=== PATIENT | female | born 1940 | race Caucasian/White ===

== ENCOUNTER → 2024-01-07 10:16 | Outpatient (REF) | payer MEDICARE, OTHER, SELFPAY ==
[2024-01-07 10:41] LABS: % Basophils 0.8 % (0-2); % Eosinophils 3.3 % (0-6); % Immature Granulocytes 0.6 % (0-0.5); % Lymphocytes 20.1 % (20.5-51.1); % Monocytes 8.4 % (1.7-9.3); % Neutrophils 66.8 % (42.2-75.2); Absolute Basophils 0.1 10^3/uL (0-0.2); Absolute Eosinophils 0.2 10^3/uL (0-0.7); Absolute Lymphocytes 1.3 10^3/uL (1.2-3.4); Absolute Monocytes 0.5 10^3/uL (0.1-0.6); Absolute Neutrophils 4.2 10^3/uL (1.4-6.5); Hematocrit 37.4 % (37.0-47.0); Hemoglobin 12.5 g/dL (12.0-16.0); Mean Corp Hgb Conc. 33.4 g/dL (33.0-37.0); Mean Corpuscular Hgb 30.7 pg (27.0-31.0); Mean Corpuscular Volume 91.9 fL (81.0-99.0); Mean Platelet Volume 10.6 fL (7.4-10.4); Nucleated Red Blood Cells % 0 %; Platelet Count 239 10^3/uL (130-400); Red Blood Cell Count 4.07 10^6/uL (4.20-5.40); Red Cell Dist. Width 13.1 % (11.5-14.5); White Blood Cell Count 6.3 10^3/uL (4.8-10.8)
[2024-01-07 10:57] LABS: ALT (SGPT) 16 U/L (0-35); AST (SGOT) 22 U/L (14-36); Albumin 3.8 g/dl (3.5-5.0); Alkaline Phosphatase 60 U/L (38-126); Blood Urea Nitrogen 22 mg/dl (7-17); Calcium 9.8 mg/dl (8.4-10.2); Carbon Dioxide 26 mmol/L (22-30); Chloride 107 mmol/L (98-107); Glucose 123 mg/dl (70-99); Potassium 4.2 mmol/L (3.5-5.1); Sodium 141 mmol/L (135-145); Total Bilirubin 0.4 mg/dl (0.2-1.3); Total Protein 6.4 g/dl (6.3-8.2); eGFR > 60.00
[2024-01-07 12:23] LABS: Glycohemoglobin (HgbA1c) 5.8 % (4.0-5.6)
[2024-01-10 19:37] LABS: Albumin 3.89 g/dL (3.75-5.01); Alpha 1 Globulin 0.26 g/dL (0.19-0.46); Alpha 2 Globulin 0.64 g/dL (0.48-1.05); Free Kappa Light Chains,Quant 28.79 mg/L (3.30-19.40); Free Lambda Light Chains,Quant 22.02 mg/L (5.71-26.30); IgA 298 mg/dL (68-408); IgG 917 mg/dL (768-1632); IgM 116 mg/dL (35-263); Immunofixation Electrophoresis IFE Done; Kappa/Lambda Fr Light Ratio 1.31 (0.26-1.65); Total Protein-Electrophoresis 6.6 g/dL (6.3-8.2)
== END ==
LOC: OLABPV 10:16
PROVIDERS: ATTENDING PHYSICIAN Family Medicine
DX: I10 Essential (primary) hypertension (principal); K76.0 Fatty (change of) liver, not elsewhere classified; M81.0 Age-related osteoporosis without current pathological fracture; R73.01 Impaired fasting glucose; R79.9 Abnormal finding of blood chemistry, unspecified
CPT/HCPCS: 36415; 80053; 82784; 83036; 83521; 84155; 84165; 85025; 86334

== ENCOUNTER → 2024-02-01 13:13 | Outpatient (REF) | payer MEDICARE, OTHER, SELFPAY | LOC: WDC 13:13 | PROVIDERS: ATTENDING PHYSICIAN Family Medicine | DX: Z12.31 Encounter for screening mammogram for malignant neoplasm of breast (principal) | CPT/HCPCS: 77063; 77067 ==

== ENCOUNTER → 2024-06-14 16:22 | Outpatient (REF) | payer MEDICARE, OTHER, SELFPAY ==
[2024-06-14 17:51] LABS: Blood Urea Nitrogen 18 mg/dl (7-17); Calcium 9.6 mg/dl (8.4-10.2); Carbon Dioxide 27 mmol/L (22-30); Chloride 107 mmol/L (98-107); Glucose 90 mg/dl (70-99); Potassium 4.6 mmol/L (3.5-5.1); Sodium 143 mmol/L (135-145); eGFR > 60.00
[2024-06-15 08:54] LABS: Glycohemoglobin (HgbA1c) 5.6 % (4.0-5.6)
== END ==
LOC: OLABPV 16:22
PROVIDERS: ATTENDING PHYSICIAN Family Medicine
DX: K76.0 Fatty (change of) liver, not elsewhere classified (principal); R73.01 Impaired fasting glucose
CPT/HCPCS: 36415; 80048; 83036

== ENCOUNTER → 2024-10-31 09:59 | Outpatient (REF) | payer MEDICARE, OTHER, SELFPAY ==
[2024-10-31 10:21] LABS: % Basophils 0.5 % (0-2); % Eosinophils 2.6 % (0-6); % Immature Granulocytes 0.7 % (0-0.5); % Lymphocytes 22.9 % (20.5-51.1); % Monocytes 8.7 % (1.7-9.3); % Neutrophils 64.6 % (42.2-75.2); Absolute Eosinophils 0.2 10^3/uL (0-0.7); Absolute Lymphocytes 1.4 10^3/uL (1.2-3.4); Absolute Monocytes 0.5 10^3/uL (0.1-0.6); Hematocrit 39.3 % (37.0-47.0); Hemoglobin 12.6 g/dL (12.0-16.0); Mean Corp Hgb Conc. 32.1 g/dL (33.0-37.0); Mean Corpuscular Hgb 30.7 pg (27.0-31.0); Mean Corpuscular Volume 95.9 fL (81.0-99.0); Mean Platelet Volume 10.1 fL (7.4-10.4); Nucleated Red Blood Cells % 0 %; Platelet Count 219 10^3/uL (130-400); Red Cell Dist. Width 13.4 % (11.5-14.5); White Blood Cell Count 6.1 10^3/uL (4.8-10.8)
[2024-10-31 10:37] LABS: ALT (SGPT) 24 U/L (0-35); AST (SGOT) 30 U/L (14-36); Albumin 3.8 g/dl (3.5-5.0); Alkaline Phosphatase 71 U/L (38-126); Blood Urea Nitrogen 21 mg/dl (7-17); Calcium 8.9 mg/dl (8.4-10.2); Carbon Dioxide 25 mmol/L (22-30); Chloride 105 mmol/L (98-107); Glucose 95 mg/dl (70-99); Potassium 4.3 mmol/L (3.5-5.1); Sodium 139 mmol/L (135-145); Total Bilirubin 0.6 mg/dl (0.2-1.3); Total Protein 6.5 g/dl (6.3-8.2); eGFR > 60.00
== END ==
LOC: OLABPV 09:59
PROVIDERS: ATTENDING PHYSICIAN Internal Medicine Rheumatology
DX: M15.0 Primary generalized (osteo)arthritis (principal); M81.0 Age-related osteoporosis without current pathological fracture; Z51.81 Encounter for therapeutic drug level monitoring
CPT/HCPCS: 36415; 80053; 85025

== ENCOUNTER → 2024-11-16 11:12 | Outpatient (REF) | payer MEDICARE, OTHER, SELFPAY | LOC: HWRAD 11:12 | PROVIDERS: ATTENDING PHYSICIAN Internal Medicine Rheumatology; FAMILY PHYSICIAN Family Medicine | DX: M81.0 Age-related osteoporosis without current pathological fracture (principal); Z13.820 Encounter for screening for osteoporosis | CPT/HCPCS: 77080 ==

== ENCOUNTER → 2024-12-20 10:18 | Outpatient (REF) | payer MEDICARE, OTHER, SELFPAY ==
[2024-12-20 11:20] LABS: ALT (SGPT) 23 U/L (0-35); AST (SGOT) 26 U/L (14-36); Albumin 4.1 g/dl (3.5-5.0); Alkaline Phosphatase 63 U/L (38-126); Blood Urea Nitrogen 24 mg/dl (7-17); Calcium 9.5 mg/dl (8.4-10.2); Carbon Dioxide 25 mmol/L (22-30); Chloride 104 mmol/L (98-107); Glucose 110 mg/dl (70-99); Potassium 4.1 mmol/L (3.5-5.1); Sodium 140 mmol/L (135-145); Total Bilirubin 0.7 mg/dl (0.2-1.3); Total Protein 6.7 g/dl (6.3-8.2); eGFR > 60.00
[2024-12-20 11:36] LABS: Glycohemoglobin (HgbA1c) 5.7 % (4.0-5.6)
== END ==
LOC: OLABPV 10:18
PROVIDERS: ATTENDING PHYSICIAN Family Medicine
DX: K76.0 Fatty (change of) liver, not elsewhere classified (principal); R73.01 Impaired fasting glucose
CPT/HCPCS: 36415; 80053; 83036

== ENCOUNTER → 2025-01-05 13:33 | Outpatient (REF) | payer MEDICARE, OTHER, SELFPAY | LOC: RAD 13:33 | PROVIDERS: ATTENDING PHYSICIAN Obstetrics & Gynecology Female Pelvic Medicine and Reconstructive Surgery; FAMILY PHYSICIAN Family Medicine | DX: N95.0 Postmenopausal bleeding (principal) | CPT/HCPCS: 76830; 76856 ==

== ENCOUNTER → 2025-06-22 10:53 | Outpatient (REF) | payer MEDICARE, OTHER, SELFPAY ==
[2025-06-22 11:30] LABS: Blood Urea Nitrogen 19 mg/dl (7-17); Calcium 9.5 mg/dl (8.4-10.2); Carbon Dioxide 27 mmol/L (22-30); Chloride 108 mmol/L (98-107); Glucose 105 mg/dl (70-99); Potassium 4.4 mmol/L (3.5-5.1); Sodium 139 mmol/L (135-145); eGFR > 60.00
[2025-06-22 11:39] LABS: Urine Character Clear (Clear)
[2025-06-22 12:07] LABS: Glycohemoglobin (HgbA1c) 5.7 % (4.0-5.6)
== END ==
LOC: OLABPV 10:53
PROVIDERS: ATTENDING PHYSICIAN Family Medicine
DX: R73.01 Impaired fasting glucose (principal); I10 Essential (primary) hypertension; R60.0 Localized edema; R93.429 Abnormal radiologic findings on diagnostic imaging of unspecified kidney
CPT/HCPCS: 36415; 80048; 81003; 83036

== ENCOUNTER 2025-07-11 02:03 | Observation (INO) | payer MEDICARE, OTHER, SELFPAY ==
[2025-07-10 16:30] VITALS: BP 145/72
[2025-07-10 16:54] LABS: Hematocrit 37.6 % (37.0-47.0); Hemoglobin 12.6 g/dL (12.0-16.0); Mean Corp Hgb Conc. 33.5 g/dL (33.0-37.0); Mean Corpuscular Volume 91.0 fL (81.0-99.0); Nucleated Red Blood Cells % 0 %; Platelet Count 211 10^3/uL (130-400); Red Cell Dist. Width 13.2 % (11.5-14.5)
[2025-07-10 17:00] LABS: ALT (SGPT) 19 U/L (0-35); AST (SGOT) 25 U/L (14-36); Albumin 4.1 g/dl (3.5-5.0); Alkaline Phosphatase 61 U/L (38-126); Blood Urea Nitrogen 19 mg/dl (7-17); Calcium 9.6 mg/dl (8.4-10.2); Carbon Dioxide 28 mmol/L (22-30); Chloride 106 mmol/L (98-107); Glucose 101 mg/dl (70-99); Lipase 125 U/L (23-300); Potassium 4.3 mmol/L (3.5-5.1); Sodium 138 mmol/L (135-145); Total Protein 7.0 g/dl (6.3-8.2); eGFR > 60.00
--- NOTE | 2025-07-10 21:17 | ED.GENMED ---
History of Present Illness
<Marybel Lucia NP - Last Filed: 07/11/25 19:46>
General
Chief Complaint: Abdominal Pain
Source: patient
Exam Limitations: none
Time Seen by Provider: 07/10/25 21:01
Nursing documentation reviewed up to this point in time: agreed with
History of Present Illness
History of Present Illness:
Patient to ED with report of severe lower abd. pain. Reports she has had mild discomfort over the past few weeks by this AM pain became severe and constant. Pain does not radiate. Denies fever/chills, n/v/d. SHe was evaluated at and advised to
come to ED for eval.
Past History
<Marybel Lucia NP - Last Filed: 07/11/25 19:46>
Past History
ED Past Medical History: HTN and Other (urinary incontinence, osteoporosis, sleep apnea)
Review of Systems
<Marybel Lucia NP - Last Filed: 07/11/25 19:46>
Review of Systems
Allergies reviewed?: Yes
All Other Systems: ROS reviewed and negative except as documented in HPI and ROS
Constitutional: Reports no symptoms
EENT: Reports no symptoms
Respiratory: Reports no symptoms
Cardiac: Reports no symptoms
ABD/GI: Reports abdominal pain (lower abdominal pain)
: Reports no symptoms
Musculoskeletal: Reports no symptoms
Skin: Reports no symptoms
Neurological: Reports no symptoms
Psychiatric: Reports no symptoms
Phy Exam
<Marybel Lucia NP - Last Filed: 07/11/25 19:46>
General Physical Exam
General Presentation: mild distress
General age: appears stated age
General Skin: warm and dry
General Habitus: normal
General Mental: alert
Cardiovascular Exam
Cardiovascular Exam: regular rate/rhythm and no edema
Gastrointestinal Exam
Gastrointestinal Exam: normal bowel sounds, soft, non distended and other (Large ventral hernia)
Palpation: generalized: Moderate tenderness
Musculoskeletal Exam
Musculoskeletal Exam: full ROM and neuro vasc intact
Skin Exam
Skin Exam: normal color, warm/dry and no rash
Psychiatric Exam
Psychiatric Exam: normal mood/affect
Course
<Marybel Lucia NP - Last Filed: 07/11/25 19:46>
Orders/Labs/Results
Orders:
Orders
07/10/25 16:41
Complete Blood Count/With Diff Urgent
Comprehensive Metabolic Panel Urgent
Lipase Urgent
07/10/25 21:16
Urinalysis Reflex To Culture Urgent
Date Specimen was Collected: 07/11/25
Time Specimen was Collected: 09:21
07/10/25 21:17
CT Abd/pelvis W Iv Cont Urgent
Comment:
Reason For Exam: lower abd. pain
07/11/25 00:42
SURGICAL CONSULT Urgent
Consulting Provider: Justen Barbosa.
Was physician already notified: Yes
07/11/25 01:37
Admit/Transfer Patient As Directed
Co-Sign Provider:
Level of Care: Observation services
Assign to:: Medical/Surgical
Physician / Group: Justen Barbosa
Diagnosis: incarcerated Unbilical Hernia
PRN Pain Medication Management As Directed
May give lesser potent ordered pain med per pt: Yes
preference::
Protocol:: Medication orders for pain may be administered in a
manner that supports deferring to patient preference
when the pt is:
- Requesting an ordered lesser potent pain medication.
Least to most potent pain medications are defined
as: acetaminophen < NSAID < tramadol < opioids
(morphine, oxycodone, hydromorphone).
- Requesting a lesser dose of the same medication IF
ORDERED.
- Requesting a less intrusive route of administration
if both routes are prescribed by the provider (PO <
IV).
07/11/25 02:51
Pneumatic Compression Sleeves As Directed
Type: Knee high
DX Deep Vein Thrombosis Video Routine
07/11/25 Breakfast
NPO
Allow oral meds: Yes
Allow clear liquids: No
07/11/25 07:41
Basic Metabolic Panel IN AM
Complete Blood Count/No Diff IN AM
07/11/25 08:00
Spironolactone [Aldactone] 25 mg PO DAILY
vibegron [Gemtesa] 75 mg PO DAILY
Abnormal Lab Results
07/10/25
16:41
RBC 4.13 L 10^6/uL
(4.20-5.40)
Abs Immat Gran (auto) 0.1 H 10^3/uL
(0-0.05)
Absolute Neuts (auto) 6.6 H 10^3/uL
(1.4-6.5)
Immature Gran % 0.6 H %
(0-0.5)
Lymphocytes % 16.1 L %
(20.5-51.1)
BUN 19 H mg/dl
(7-17)
Glucose 101 H mg/dl
(70-99)
07/10/25 16:41
07/10/25 16:41
Vital Signs
Initial and Last Documented VS:
Initial Vital Signs
Temp Pulse Resp BP Pulse Ox
98.4 F 79 20 145/72 95
07/10/25 16:30 07/10/25 16:30 07/10/25 16:30 07/10/25 16:30 07/10/25 16:30
Last Documented Vital Signs
Temp Pulse Resp BP Pulse Ox
98.5 F 97 16 106/41 93
07/11/25 18:37 07/11/25 18:37 07/11/25 18:37 07/11/25 18:37 07/11/25 18:37
<Km Finch, - Last Filed: 07/11/25 00:09>
Orders/Labs/Results
Orders:
Orders
07/10/25 16:41
Complete Blood Count/With Diff Urgent
Comprehensive Metabolic Panel Urgent
Lipase Urgent
07/10/25 21:16
Urinalysis Reflex To Culture Urgent
Date Specimen was Collected: 07/11/25
Time Specimen was Collected: 09:21
07/10/25 21:17
CT Abd/pelvis W Iv Cont Urgent
Comment:
Reason For Exam: lower abd. pain
07/11/25 00:42
SURGICAL CONSULT Urgent
Consulting Provider: Justen Barbosa.
Was physician already notified: Yes
07/11/25 01:37
Admit/Transfer Patient As Directed
Co-Sign Provider:
Level of Care: Observation services
Assign to:: Medical/Surgical
Physician / Group: Justen Barbosa
Diagnosis: incarcerated Unbilical Hernia
PRN Pain Medication Management As Directed
May give lesser potent ordered pain med per pt: Yes
preference::
Protocol:: Medication orders for pain may be administered in a
manner that supports deferring to patient preference
when the pt is:
- Requesting an ordered lesser potent pain medication.
Least to most potent pain medications are defined
as: acetaminophen < NSAID < tramadol < opioids
(morphine, oxycodone, hydromorphone).
- Requesting a lesser dose of the same medication IF
ORDERED.
- Requesting a less intrusive route of administration
if both routes are prescribed by the provider (PO <
IV).
07/11/25 02:51
Pneumatic Compression Sleeves As Directed
Type: Knee high
DX Deep Vein Thrombosis Video Routine
07/11/25 Breakfast
NPO
Allow oral meds: Yes
Allow clear liquids: No
07/11/25 07:41
Basic Metabolic Panel IN AM
Complete Blood Count/No Diff IN AM
07/11/25 08:00
Spironolactone [Aldactone] 25 mg PO DAILY
vibegron [Gemtesa] 75 mg PO DAILY
Abnormal Lab Results
07/10/25
16:41
RBC 4.13 L 10^6/uL
(4.20-5.40)
Abs Immat Gran (auto) 0.1 H 10^3/uL
(0-0.05)
Absolute Neuts (auto) 6.6 H 10^3/uL
(1.4-6.5)
Immature Gran % 0.6 H %
(0-0.5)
Lymphocytes % 16.1 L %
(20.5-51.1)
BUN 19 H mg/dl
(7-17)
Glucose 101 H mg/dl
(70-99)
07/10/25 16:41
07/10/25 16:41
Vital Signs
Initial and Last Documented VS:
Initial Vital Signs
Temp Pulse Resp BP Pulse Ox
98.4 F 79 20 145/72 95
07/10/25 16:30 07/10/25 16:30 07/10/25 16:30 07/10/25 16:30 07/10/25 16:30
Last Documented Vital Signs
Temp Pulse Resp BP Pulse Ox
98.5 F 97 16 106/41 93
07/11/25 18:37 07/11/25 18:37 07/11/25 18:37 07/11/25 18:37 07/11/25 18:37
<Marybel Lucia PHOTONICS ENGINEER - Last Filed: 07/11/25 19:46>
*Radiology
Radiology exam reviewed: radiology read reviewed
*Pulse Oximetry
SaO2: 95
Oxygen Mode of Delivery: Room air
Patient hypoxic: no
*Critical Care Note
Total Time (30-74mins, 75-104mins- exclusive of procedures): Not Applicable
<Marybel Lucia PHOTONICS ENGINEER - Last Filed: 07/11/25 19:46>
Update Note
Update Note:
Patient to ED with report of severe lower abdominal pain since this AM. Abdomen is large, soft. No guarding or rebound. Large umbilical hernia noted. Labs reviewed, no concerning findings. VSS, she remains afebrile. CT report:large umbilical
hernia, smaller ventral hernia. Moderate wall thickening of the small segment of colon involved at the mouth of ther hernia, suggesting incarceration/strangulation. Attempted reduction by Dr. Finch. Unable to completely reduce. Dr. Barbosa
consulted via tiger text. Patient will be admitted to hospitalist mally, surgery to consult in AM.
ED Attending Note
<Marybel Lucia PHOTONICS ENGINEER - Last Filed: 07/11/25 19:46>
-
Portions of this chart may have been created with voice recognition software.� Occasional wrong word or��sound alike� substitutions may have occurred due to the inherent limitations of voice recognition software.
<Km Finch, DO - Last Filed: 07/11/25 00:09>
ED Attending Note
Patient seen and examined by attending physician: Yes
ED Attending Note:
Pleasant 84-year-old female who presents with abdominal pain. By CAT scan she has an incarcerated possibly strangulated set of 2 ventral hernias. I did try to reduce them. It did cause her some pain. She reported that the pain subsided when we
were not reducing. Patient reports also right lower quadrant pain when we attempt to reduce the ventral hernias. Patient to be admitted to the surgical service. I have seen this patient in conjunction with the nurse practitioner. I reviewed and
agree with her history and treatment plan. On my independent physical, minimal to moderate acute distress. Abdomen is distended. There is a umbilical hernia that is prominent.
Discharge Plan
Departure
Patient Disposition: Admit
Date of Disposition: 07/11/25
Time of Disposition: 00:40
Presentation/result/management discussed w/ accepting MD/DO: Hospitalist
Patient with high blood pressure during this ER visit?: No
Condition: Fair
Covid-19: Not Applicable
Discharge Problem:
Incarcerated umbilical hernia
Interventions
Interventions:
*Risk Screen - Suicide Last Done: 07/10/25 16:34
*General Assessment Last Done: 07/10/25 16:34
*Neglect/Abuse Screening Last Done: 07/10/25 16:34
*Nursing Disposition Last Done: 07/11/25 02:35
PR-Qddban-Smccpkandt Assessment Last Done: 07/10/25 22:53
Discharge Date and Time
Discharge Date/Time: 07/11/25 02:51
[2025-07-10 22:53] VITALS: BP 135/53
[2025-07-11] VITALS (9 sets, daily range): BP systolic 103–153; BP diastolic 39–89; BMI 38.5
--- NOTE | 2025-07-11 01:51 | HPS.HSE ---
Family Physician
-
Family Physician: Cinthya Morejon
Chief Complaint
-
'Abdomen pain'
History of Present Illness
84 y/o patient presents to ER with the c/o Lower abdomen pain. Reports 'constant discomfort' at the Right lower abdomen started yesterday (07/10) morning after her breakfast, went to Urgent care at at 3:30 PM and was told to go to ER. States ER
provider attempted to reduce the hernia but unable to do so. reports poor appetite, Denies nausea, vomiting, chills or fever. Last Normal BM 07/10, voiding without difficulties, no blood in stool or urine noted. + flatus but less than yesterday. she
states Hernia was noted years ago and been followed by Dr. Cox.
Medical History
Past Medical History
Past Medical History: Reports HTN
Additional Past Medical History:
urinary Incontinence, Over active bladder, Osteoporosis, Sleep apnea uses Cpap
Past Surgical History: Reports Gynocological (Oophorectomy), Orthopedic (B/L knee replacement) and Other
Additional Past Surgical History:
Cataract surgery, D&C
Social History
Tobacco: Non-smoker
Alcohol: None
Living: With Family
Family History
Family History: Not pertinent
Allergies / Home Medications
Allergies reflects when Allergies were last updated in [employer].
Home Medications with original date entered in [employer]
Allergy/Medication List:
Allergies
Allergy/AdvReac Type Severity Reaction Status Date / Time
No Known Drug Allergies Allergy - Verified 07/10/25 16:38
Environmental Allergy Nasal Uncoded 01/19/18 07:23
Congestion
Home Medications
estradiol 0.01% (0.1 mg/gram) vaginal cream 1 applic VAG .QPM 2X/WEEK 08/30/17
Refresh Eye Drops (Pf): 0 drops BOTH EYES PRN PRN dry eyes 01/07/18
calcium carbonate 500 mg PO DAILY 01/07/18
cholecalciferol (vitamin D3) 50 mcg (2,000 unit) tablet 1,500 unit PO DAILY 01/07/18
zolpidem 5 mg tablet 2.5 - 5 mg PO HSPRN PRN insomnia 01/07/18
spironolactone 25 mg tablet 25 mg PO DAILY 07/11/25
vibegron 75 mg tablet (Gemtesa) 75 mg PO DAILY 07/11/25
Review of Systems
-
History Source: Patient
A 12 point ROS was completed and negative except as noted: Yes
Constitutional: Reports No Symptoms
EENT: Reports No Symptoms
Respiratory: Reports No Symptoms
Cardiac: Reports No Symptoms
Abdomen/GI: Reports Abdominal Pain ('feeling better now', 'bloated' )
: Reports No Symptoms
Musculoskeletal: Reports No Symptoms
Skin: Reports No Symptoms
Neurological: Reports No Symptoms
Endocrine: Reports No Symptoms
Hematologic/Lymphatic: Reports No Symptoms
Psych: Reports No Symptoms
Physical Exam
Vital Signs
Vital Signs
Temp Pulse Resp BP Pulse Ox
97.6 F 69 20 153/68 96
07/11/25 01:35 07/11/25 01:35 07/11/25 01:35 07/11/25 01:35 07/11/25 01:35
Physical Exam
General: Well Developed, Well Nourished and No Apparent Distress
HEENT: NormoCephalic, Moist mucous membranes and Atraumatic
Respiratory: Clear and Non Labored Respirations
Cardiac: S1/S2 and Regular Rhythm
Breast: Deferred by me
GI: Soft, Non Tender and Normal Bowel Sounds
Rectal: Deferred by Provider
Genito-urinary: Deferred by me
Musculoskeletal: No Clubbing, No Cyanosis and Edema, Left Lower Extremity
Skin: Warm and Dry
Neuro: Awake, AO x 3 and Nonfocal/grossly intact
Hematologic/Lymphatic: No Lymphadenopathy
Psych: Calm and Intact Judgment/Insight
Laboratory Results
-
07/10/25 16:41
07/10/25 16:41
Laboratory Results
Total Bilirubin 0.4 mg/dl (0.2-1.3) 07/10/25 16:41
AST 25 U/L (14-36) 07/10/25 16:41
ALT 19 U/L (0-35) 07/10/25 16:41
Alkaline Phosphatase 61 U/L (38-126) 07/10/25 16:41
Lipase 125 U/L (23-300) 07/10/25 16:41
Data Reviewed
-
CT Scan: Report Reviewed by me
Lab Data: Labs Reviewed by me
Impression/Plan
-
84 y/o patient with c/o Abdomen pain
# Abdomen pain Likely due to Incarcerated Ventral Hernia
-CT abd/pelvis:
Findings suggesting 2 ventral hernias each with signs of incarceration/strangulation. No evidence of intestinal obstruction.
-labs in AM
-NPO
-Admit to Dr. Barbosa
-Observation MedSurg
#Essential HTN
- Continue Spironolactone
#Over active bladder
-Continue Gemtesa
# Sleep Apnea
-CPap
-Refusing for tonight, will bring own if patient stays.
Full Code
SCD's
--- NOTE | 2025-07-11 07:59 | CON.GS ---
Addendum entered and electronically signed by Félix Mayorga MD 07/11/25 10:33:
I saw and examined the patient.
The Inspector Screen Printing's note was reviewed and I agree with the note.
Comment: 84F with reducible VIH involving colon; imaging confirms a tuvaluan cheese type defect encompassing approx 5.5cm x 3cm; she feels improved this am but remains ttp at the hernia, the hernia is soft and partially reducible, the fascial edge is
palpable; recommend operative repair, plan for MIS approach. Informed consent obtained, mesh discussed, obesity discussed, other risks discussed including but not limited to pain, infection, injury to intra-abdominal structures such as colon or
small bowel, bleeding, recurrence. The pot verbalized understanding and agreed to proceed.
Original Note:
Consultation
-
Date/Time Consultation Requested: 07/11/2025 00:42
Date/Time Consultation Performed: 07/11/2025 9:00
Requesting Provider: Marybel Lucia
Performing Provider: Félix Mayorga
Reason for Consultation: abdominal pain likely incarcerated ventral hernia
Medical History
-
Chief Complaint: Abdominal pain
History of Present Illness:
84-year-old female with past medical history significant for umbilical hernia, severe obesity, cholelithiasis without cholecystitis, allergic rhinitis, insomnia, severe CATY on CPAP, osteoarthritis, osteoporosis, adenomatous colon polyp, essential
hypertension, hypercholesterolemia, and overactive bladder. Past surgical history includes bilateral oophorectomy, bilateral knee replacement, dilation and curettage, and cataract surgery.
She presents with abdominal pain. About 4 years ago, she noted distention of her navel and was diagnosed with a ventral hernia. She was evaluated once by Dr. Cox but was unable to follow up due to the COVID-19 pandemic.
Several weeks ago, she began experiencing episodic abdominal discomfort, rated 2�3/10, self-limited, spontaneously resolved. One week ago, she saw her PCP, who advised dietary modifications.
One day prior to admission, she developed persistent right lower quadrant pain, rated 7�8/10, associated with bloating. She sought care at an urgent care center and advised to go to ER, where manual reduction of the hernia was attempted but
unsuccessful. G?P2. She denies nausea, vomiting, or fever. Not on any blood thinners, no known adverse reaction to general anesthesia.
Abdominal/Pelvis CT showed: fat and bowel containing umbilical hernia measuring approximately 7.8 mm; contains fat, moderate wall thickening of the small segment of colon involved at the mouth of the hernia. adjacent smaller left ventral
fat-containing hernia; mild associated stranding. few gallstones approx. 1.5 cm.
Past Medical History
Past Medical History: HTN, Hypercholesterolemia and Other (Umbilical hernia, severe obesity, severe CATY on CPAP, osteoarthritis, osteoporosis, adenomatous polyp, overactive bladder)
Past Surgical History: Gynecological (Bilateral Oophorectomy, D&C), Orthopedic (Bilateral Knee replacement) and Other (Cataract Surgery)
Social History
Tobacco: Former Smoker
Alcohol: Other (2-3 glasses of wine/week)
Drug: None
Personal:
Living: With Family
Employment: Retired
Family History
Family History: Other (Daughter- Rhabdomyosarcoma, Maternal- HPN, RA, Paternal- prostate, breast cancer)
Allergies / Home Medications
Allergy/AdvReac Type Severity Reaction Status Date / Time
No Known Drug Allergies Allergy - Verified 07/10/25 16:38
Environmental Allergy Nasal Uncoded 01/19/18 07:23
Congestion
�Medication �Instructions �Recorded �Confirmed �Type
estradiol 0.01% (0.1 mg/gram) 1 applic VAG .QPM 2X/WEEK 08/30/17 07/11/25 History
vaginal cream
Refresh Eye Drops (Pf): 0 drops BOTH EYES PRN PRN dry eyes 01/07/18 07/11/25 History
calcium carbonate 500 mg PO DAILY 01/07/18 07/11/25 History
cholecalciferol (vitamin D3) 50 1,500 unit PO DAILY 01/07/18 07/11/25 History
mcg (2,000 unit) tablet
zolpidem 5 mg tablet 2.5 - 5 mg PO HSPRN PRN insomnia 01/07/18 07/11/25 History
spironolactone 25 mg tablet 25 mg PO DAILY 07/11/25 07/11/25 History
vibegron 75 mg tablet (Gemtesa) 75 mg PO DAILY 07/11/25 07/11/25 History
Review of Systems
-
History Source: Patient
EENT: No Symptoms
Respiratory: No Symptoms
Cardiac: No Symptoms
Abdomen/GI: Abdominal Pain (04/24 upon presentation)
: Other (Overactive bladder)
Neurological: No Symptoms
Endocrine: No Symptoms
Hematologic/Lymphatic: No Symptoms
A 10 point review of systems was completed, and was negative except as per HPI.
Physical Exam
Vital Signs
Temp Pulse Resp BP Pulse Ox
98.3 F 74 18 144/57 100
07/11/25 03:08 07/11/25 03:08 07/11/25 03:08 07/11/25 03:08 07/11/25 03:08
07/10/25 07/11/25 07/12/25
06:59 06:59 06:59
Actual Weight 98.628 kg
Body Mass Index (BMI) 38.5
Lab Results
WBC 8.9 10^3/uL (4.8-10.8) 07/10/25 16:41
Hgb 12.6 g/dL (12.0-16.0) 07/10/25 16:41
Hct 37.6 % (37.0-47.0) 07/10/25 16:41
Plt Count 211 10^3/uL (130-400) 07/10/25 16:41
Abs Immat Gran (auto) 0.1 10^3/uL (0-0.05) H 07/10/25 16:41
Neutrophils % 74.6 % (42.2-75.2) 07/10/25 16:41
Physical Exam
General: No Apparent Distress and Comfortable; Negative Fever
Respiratory: Non Labored Respirations
Cardiac: S1/S2 and Regular Rhythm
GI: Soft, Tender (umbilical hernia), Distended and Other ((+)reducible umbilical hernia, enlarges with coughing)
Musculoskeletal: No Edema
Neuro: AO x 3
Psych: Calm
Data Reviewed
-
CT Scan: Image Personally Visualized and interpreted (by attending surgeon), Report Reviewed by me (and attending surgeon) and Discussed with Patient (by attending surgeon)
Assessment / Plan
-
84-year-old female with past medical history significant for , severe obesity, chronic constipation, cholelithiasis without cholecystitis, allergic rhinitis, insomnia, severe CATY on CPAP, osteoarthritis, osteoporosis, adenomatous colon polyp,
essential hypertension, hypercholesterolemia, and overactive bladder. Past surgical history includes bilateral oophorectomy, bilateral knee replacement, dilation and curettage, and cataract surgery with known umbilical hernia presents with abdominal
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 She sought care at an urgent care center and advised to go to ER, where manual reduction of
the hernia was attempted but unsuccessful. G?P2. She denies nausea, vomiting, or fever.
Abdominal/Pelvis CT showed: fat and bowel containing umbilical hernia measuring approximately 7.8 mm; contains fat, moderate wall thickening of the small segment of colon involved at the mouth of the hernia. adjacent smaller left ventral
fat-containing hernia; mild associated stranding. few gallstones approx. 1.5 cm.
Impression:
#Incarcerated Ventral Hernia
-Robotic hernia repair
-NPO
-IV fluids
[2025-07-11 08:06] LABS: Hematocrit 37.0 % (37.0-47.0); Hemoglobin 12.5 g/dL (12.0-16.0); Mean Corp Hgb Conc. 33.8 g/dL (33.0-37.0); Mean Corpuscular Volume 92.7 fL (81.0-99.0); Platelet Count 196 10^3/uL (130-400); Red Cell Dist. Width 13.1 % (11.5-14.5)
[2025-07-11 08:27] LABS: Blood Urea Nitrogen 14 mg/dl (7-17); Calcium 8.9 mg/dl (8.4-10.2); Carbon Dioxide 27 mmol/L (22-30); Chloride 106 mmol/L (98-107); Estimated Creatinine Clearance 60 ml/min; Glucose 94 mg/dl (70-99); Potassium 4.0 mmol/L (3.5-5.1); Sodium 137 mmol/L (135-145); eGFR > 60.00
[2025-07-11] MEDS: ALDACTONE 25 MG PO (09:13)
[2025-07-11 09:47] LABS: Urine Character Clear (Clear)
--- NOTE | 2025-07-11 09:54 | CM ---
CM following re: discharge planning.
Reviewed pt's chart, met with pt and pt's Zafar at bedside.
Pt is an 84 year old female, admitted with OBS status and primary dx of Abdomen pain Likely due to Incarcerated Ventral Hernia. OBS status reviewed with the pt and her , pt declined to sign, ANDRE letter placed on chart, pt has a copy.
Per chart review, OR today for Robotic hernia repair.
Pt reports she lives with in an independent apartment at [facility], has supportive daughter. Pt described herself as independent in all areas [employer]. No DME, VN or SNF history.
PCP: Cinthya Morejon
Pharmacy: [facility] [place].
D/C plan: home with anticipated no needs. to transport at discharge.
CM< will follow with discharge plan updates as hospitalization progresses
--- NOTE | 2025-07-11 17:26 | W.IMMPOSTOP ---
Surgical Immed Post Op Note
-
Primary Surgeon: Mukesh
Assisting: Ely STEIN
Pre-op Diagnosis: Incarcerated ventral incisional hernia
Post-op Diagnosis: Same
Procedure Performed: Robot assisted laparoscopic repair of incarcerated ventral incisional hernia (rTAPP)
Anesthesia Type: GETA + TAP block
Specimen / Cultures: None
Estimated Blood Loss: 15cc
Complications: None immediate
Operative Findings: 3cm x 2cm defect with 1cm fascial bridge and 1.5cm x 1cm defect inferior [total hernia size 5.2cm]; 12cm x 12cm bard soft mesh, peritoneal rent at right upper quadrant repaired with vascularized omentum
called at both listed numbers, unable to reach or locate in atrium, VM left
[2025-07-11] MEDS: MORPHINE SULFATE 1 MG IV (18:06)
--- NOTE | 2025-07-11 18:42 | PTCARENOTE ---
1830 Pt arrived from PACU. VSS. 93% on 2LO2. 5 LAP sites OA with glue with abdominal binder in place. family at bedside.
[2025-07-11] MEDS: LOVENOX 40 MG SC (19:55)
[2025-07-11] MEDS: ULTRAM 50 MG PO (23:03)
[2025-07-11] MEDS: ANESTHETIC LOZENGE 1 LOZENGE PO (23:03)
[2025-07-12 07:05] VITALS: BP 135/60
[2025-07-12] MEDS: ALDACTONE 25 MG PO (08:43)
--- NOTE | 2025-07-12 09:02 | W.PN.GS2 ---
Today's Communication / Plan
-
DC
Assessment / Plan
-
84F POD1 s/p rTAPP VIHR
Doing well, meets criteria for DC
DC home
Subjective Data
-
Date of Service: July 12, 2025
Low grade temp x1, otherwise AFVSS, ambulating, voiding, pain controlled, ritika PO
Objective Data
-
Intake and Output
07/11/25 07/12/25 07/13/25
06:59 06:59 06:59
Intake Total 555 / 555
Output Total 300 / 300
Balance 255 / 255
Intake:
Oral fluids 480 / 480
IV fluids (Total) 75 / 75
NORMOSOL 75 / 75
Output:
Urine, Voided 300 / 300
Other:
Number of approximated MODERATE 2
amounts of urine
Vital Signs
Temp Pulse Resp BP Pulse Ox
98.5 F 71 16 135/60 94
07/12/25 07:05 07/12/25 08:43 07/12/25 07:05 07/12/25 08:43 07/12/25 07:05
Lab Results
07/11/25 07:41
07/11/25 07:41
Calcium 8.9 mg/dl (8.4-10.2) 07/11/25 07:41
Total Bilirubin 0.4 mg/dl (0.2-1.3) 07/10/25 16:41
AST 25 U/L (14-36) 07/10/25 16:41
ALT 19 U/L (0-35) 07/10/25 16:41
Alkaline Phosphatase 61 U/L (38-126) 07/10/25 16:41
Total Protein 7.0 g/dl (6.3-8.2) 07/10/25 16:41
Albumin 4.1 g/dl (3.5-5.0) 07/10/25 16:41
Physical Exam
-
Gen: NAD
Abd: soft, approp ttp, incisions cdi with glue
Patient has a perera catheter: No
Patient has a central line: No
--- NOTE | 2025-07-12 09:09 | W.DS.TRANS ---
Addendum entered and electronically signed by ANGELIQUE Holden 07/12/25 13:39:
dictated #[id number]
Original Note:
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
-
Discharge Instructions:
Discharge Diagnosis/Procedures Ventral hernia repair
Diet No restrictions
Activity No strenuous activity
Bathing Restrictions OK to Shower
Wound Care Allow skin glue to flake off on its own. Wear
abdominal binder whe n you are out of bed for
the next two weeks.
Instructions: Abdominal wall hernia repair (DC)
Stand-Alone Forms:
Changes to Home Medications: No
Discharge Medications:
DC Medications w/original date entered in [employer]
estradiol 0.01% (0.1 mg/gram) vaginal cream 1 applic VAG .QPM 2X/WEEK HORMONE 08/30/17
Refresh Eye Drops (Pf): 0 drops BOTH EYES PRN PRN dry eyes 01/07/18
calcium carbonate 500 mg PO DAILY Gastrointestinal Issue 01/07/18
cholecalciferol (vitamin D3) 50 mcg (2,000 unit) tablet 1,500 unit PO DAILY Supplement 01/07/18
zolpidem 5 mg tablet 2.5 - 5 mg PO HSPRN PRN insomnia 01/07/18
spironolactone 25 mg tablet 25 mg PO DAILY Fluid Retention/Swelling 07/11/25
vibegron 75 mg tablet (Gemtesa) 75 mg PO DAILY OAB 07/11/25
tramadol 50 mg tablet 50 mg PO Q6H PRN Pain #30 tabs 07/12/25
Home Medication Changes
Pending Results: No
--- NOTE | 2025-07-12 09:52 | CM ---
CM following re: discharge planning.
Reviewed pt's chart, met with pt.
Pt is POD1 s/p rTAPP VIHR.
Discharge order noted. Pt is aware, expressed her agreement and pt stated her will transport home. Pt still OBS status.
Pt lives with in an independent apartment at [facility], has supportive daughter and pt is independent in all areas [employer].
No after care VN needs indicated.
D/C plan: home with no needs. to transport.
[2025-07-12 11:15] VITALS: BP 118/56
--- NOTE | 2025-07-17 12:26 | OR.RPT ---
Operative Report
Operative Report
Primary Surgeon: Mukesh
Assisting: Ely STEIN
Pre-op Diagnosis: Incarcerated ventral incisional hernia
Post-op Diagnosis: Same
Procedure Performed: Robot assisted laparoscopic repair of incarcerated ventral incisional hernia (rTAPP)
Anesthesia Type: GETA + TAP block
Specimen / Cultures: None
Estimated Blood Loss: 15cc
Complications: None immediate
Operative Findings: 3cm x 2cm defect with 1cm fascial bridge and 1.5cm x 1cm defect inferior [total hernia size 5.2cm]; 12cm x 12cm bard soft mesh, peritoneal rent at right upper quadrant repaired with vascularized omentum
DOS: 07/11/25
Indications:� This 84F developed a painful incarcerated umbilical hernia with questionable bowel involvement. Robot assisted laparoscopic repair was planned.
Description of procedure:� The patient was taken to the operating room and positioned into supine position. The patient�s abdomen was prepped and draped in standard sterile fashion. A time-out was completed verifying correct patient, procedure,
site, positioning, and implants and special equipment prior to beginning this procedure.� A stab incision was made in the left upper quadrant, a Veress needle was inserted and proper position was confirmed by aspiration and saline drop test.
Following this, pneumoperitoneum was created with insufflation of carbon dioxide to 12 mmHg. Then a 8mm robotic trocar was inserted at the left of anterior axillary line. The laparoscope was inserted and no injuries were identified in the area.
Under direct visualization, two 8mm trocars were placed a hand's breadth inferior to the initial trocar and a hand's breadth inferior to the second trocar in succession.
Attention was turned to the defect. The peritoneum was incised several cm superior to the defect and a peritoneal flap was developed in transverse and caudad directions using blunt and sharp dissection and judicious electrocautery. The defect
measured as above. The defect was closed with 0 PDS stratafix suture. Mesh was passed into the abdomen and centered on the defect and then placed against the underside of the abdominal wall and secured in place with 2-0 vicryl sutures at all four
corners as well as under the defect. The flap was closed over the mesh and secured with 2-0 monocryl stratafix suture. A few small rents in the flap were closed with 2-0 vicryl suture and 2-0 monocryl stratafix suture. A larger rent at the right
upper quadrant was repaired using a flap of vascularized omentum brought up to cover the defect in the peritoneum an secured to the abdominal wall with 2-0 monocryl stratafix suture. A transversus abdominis plane block was then performed under
laparoscopic vision with marcaine/decadron.
After ensuring adequate hemostasis, the trocars were removed and the pneumoperitoneum allowed to escape. The trocar incisions were closed at the skin level using 4-0 monocryl and topical skin adhesive. All counts were correct. The patient tolerated
the procedure well and was taken to the postanesthesia care unit in stable condition.
== END 2025-07-12 13:46 | disposition home or self-care (01) ==
LOC: 2 SOUTH 02:03
PROVIDERS: Emergency Medicine; Nurse Practitioner; Nurse Practitioner Gerontology; ADMITTING PHYSICIAN Surgery; EMERGENCY PHYSICIAN Emergency Medicine; FAMILY PHYSICIAN Family Medicine
DX: K43.0 Incisional hernia with obstruction, without gangrene (principal); E66.01 Morbid (severe) obesity due to excess calories; Z68.38 Body mass index [BMI] 38.0-38.9, adult; I10 Essential (primary) hypertension; N32.81 Overactive bladder; Z79.899 Other long term (current) drug therapy; Z87.891 Personal history of nicotine dependence
CPT/HCPCS: 49594; 74177; 80048; 80053; 81003; 83690; 85025; 85027; 99284; C1781; G0378; Q9967

== ENCOUNTER → 2025-07-17 10:46 | Outpatient (REF) | payer MEDICARE, OTHER, SELFPAY ==
[2025-07-17 11:50] LABS: Hematocrit 35.8 % (37.0-47.0); Hemoglobin 11.6 g/dL (12.0-16.0); Mean Corp Hgb Conc. 32.4 g/dL (33.0-37.0); Mean Corpuscular Volume 93.7 fL (81.0-99.0); Nucleated Red Blood Cells % 0 %; Platelet Count 280 10^3/uL (130-400); Red Cell Dist. Width 13.2 % (11.5-14.5)
[2025-07-17 11:56] LABS: ALT (SGPT) 33 U/L (0-35); AST (SGOT) 26 U/L (14-36); Albumin 3.6 g/dl (3.5-5.0); Alkaline Phosphatase 65 U/L (38-126); Blood Urea Nitrogen 16 mg/dl (7-17); Calcium 9.3 mg/dl (8.4-10.2); Carbon Dioxide 29 mmol/L (22-30); Chloride 104 mmol/L (98-107); Glucose 107 mg/dl (70-99); Potassium 4.6 mmol/L (3.5-5.1); Sodium 137 mmol/L (135-145); Total Protein 6.4 g/dl (6.3-8.2); eGFR > 60.00
[2025-07-17 12:12] LABS: Vitamin D, 25-OH*** 38.6 ng/mL (30-80)
== END ==
LOC: OLABPV 10:46
PROVIDERS: ATTENDING PHYSICIAN Internal Medicine Rheumatology; FAMILY PHYSICIAN Internal Medicine
DX: E55.9 Vitamin D deficiency, unspecified (principal); M15.0 Primary generalized (osteo)arthritis; M81.0 Age-related osteoporosis without current pathological fracture; Z51.81 Encounter for therapeutic drug level monitoring
CPT/HCPCS: 36415; 80053; 82306; 85025

== ENCOUNTER → 2025-08-21 09:18 | Outpatient (REF) | payer MEDICARE, OTHER, SELFPAY | LOC: OLABPV 09:18 | PROVIDERS: ATTENDING PHYSICIAN Surgery | DX: L76.34 Postprocedural seroma of skin and subcutaneous tissue following other procedure (principal); S31.105A Unspecified open wound of abdominal wall, periumbilic region without penetration into peritoneal cavity, initial encounter | CPT/HCPCS: 87070; 87077; 87186; 87205 ==